=== PATIENT | female | born 1995 | race Caucasian/White ===

== ENCOUNTER 2019-08-13 21:33 | Emergency (ER) | payer OTHER ==
[~2019-08-13] VITALS: Ht 177.8 cm; Wt 70.8 kg
[~2019-08-13 21:33] MED LIST: FLEXERIL PO; KEFLEX500 M1 PO; NAPROSYN500 MG PO; PRENATAL PO; VITAMIN B-650 M1 PO; ZOFRAN ODT4 MG PO
[2019-08-13 22:46] LABS: BASOPHILS 1.2 % (0.0-2.0); EOSINOPHILS 3.4 % (0.0-3.0); HEMATOCRIT 42.9 % (37.0-47.0); HEMOGLOBIN 14.5 gm/dL (12.0-15.0); LYMPHOCYTES 29.7 % (24.0-44.0); MCH 31.1 pg (26.0-34.0); MCHC 33.9 g/dL (28.0-37.0); MCV 91.8 fL (80.0-100.0); MONOCYTES 5.5 % (1.0-8.0); PLATELET COUNT 274 thou/uL (150-400); POLYS 60.2 % (36.0-66.0); RBC 4.67 mil/uL (4.20-5.00); RDW 13.2 % (10.5-14.5); WBC 8.3 thou/uL (4.0-11.0)
[2019-08-13 23:09] LABS: AMP/METHAMP Negative (Negative); BARBITURATES Negative (Negative); BENZODIAZEPINES Negative (Negative); COCAINE Negative (Negative); METHADONE Negative (Negative); OPIATES Negative (Negative); PCP Negative (Negative)
[2019-08-13 23:10] LABS: CREATININE 0.7 mg/dL (0.6-1.0); POTASSIUM 3.9 mmol/L (3.5-5.1)
[2019-08-13 23:14] LABS: ALBUMIN 3.5 g/dL (3.4-5.0); SALICYLATE 3.2 mg/dL (2.8-20.0); TOTAL BILIRUBIN 0.2 mg/dL (<0.1-1.0); TOTAL PROTEIN 7.5 g/dL (6.4-8.2)
[2019-08-14 02:09] VITALS: BP 150/93
--- NOTE | 2019-08-15 14:00 | EKG ---
[address] [address] ELECTROCARDIOGRAM REPORT Name: CATHY MARES Room #: [facility]#: [id number] Admission: 08/13/19 Attend Phys: Discharge: 08/14/19 Date of : [birth year] Report #: [id number] THIS REPORT FOR: //name// [facility] ED Test Date: 2019-08-13 Test Time: 22:15:54 Pat Name: CATHY VISHNU Department: Room: Gender: F [employer]: eileen : 1995 Requested By: Rigoberto Miranda Order Number: [id number] MD: Ethan Pate Measurements Intervals [place] Rate: 75 P: -27 NE: 148 QRS: 43 QRSD: 84 T: 40 QT: 352 QTc: 394 Interpretive Statements Sinus rhythm Baseline wander in lead(s) I No previous ECG available for comparison Electronically Signed On 08-15-2019 14:00:06 CDT by Ethan Pate [email or web address] <ELECTRONICALLY SIGNED> By: Ethan Pate MD 08/15/19 1400 2215 2215 Ethan Pate MD /NOEMI
== END 2019-08-14 02:00 | disposition home or self-care (01) ==
LOC: ER 21:33
PROVIDERS: Emergency Medicine
DX: F32.9 Major depressive disorder, single episode, unspecified (principal); E03.9 Hypothyroidism, unspecified; F17.200 Nicotine dependence, unspecified, uncomplicated; Z85.43 Personal history of malignant neoplasm of ovary; Z91.040 Latex allergy status; Z88.8 Allergy status to other drugs, medicaments and biological substances